=== PATIENT | male | born 1980 ===

== ENCOUNTER 2021-04-19 05:29 | Day surgery (SDC) | payer OTHER ==
[2021-04-19] MEDS ORDERED: ULTRACET PO (09:21)
[2021-04-19] MEDS ORDERED: SURFAK240 M1 PO (09:23)
[2021-04-19] MEDS ORDERED: PROTONIX40 MG PO (09:24)
== END 2021-04-19 15:15 | disposition home or self-care (01) ==
LOC: CIR.AMB 05:29
PROVIDERS: ATTEND Surgery
DX: K40.90 Unilateral inguinal hernia, without obstruction or gangrene, not specified as recurrent (principal); Z20.822 Contact with and (suspected) exposure to COVID-19